=== PATIENT | male | born 1970 | race Caucasian/White ===

== ENCOUNTER 2016-10-03 08:54 | Day surgery (SDC) | payer OTHER ==
[~2016-10-03 08:54] MED LIST: DIPHENHYDRAMINE HCL 50 MG/ML VIAL ONE; EPINEPHRINE INJ 1 MG/10 ML DISP.SYRIN ONE; FENTANYL CITRATE INJ/PF 100 MCG/2 ML AMPUL ONE; FLUMAZENIL INJ 0.5 MG/5 ML VIAL IV ONE; GLUCAGON,HUMAN RECOMB 1 MG INJ ONE; MIDAZOLAM 2 MG/2 ML INJ ONE; NALOXONE HCL INJ/PF 0.4 MG/1 ML SDV ONE; ONDANSETRON HCL INJ/PF 4 MG/2 ML SDV ONE; PROMETHAZINE HCL INJ 25 MG/1 ML VIAL ONE
--- NOTE | 2016-10-03 10:18 | Operative Report ---
Operative Report DATE OF SURGERY: 10/03/16 Operative Report: The risks, benefits and alternatives of the procedure including risks of bleeding, perforation requiring surgery I explained to the patient detail informed consents obtained. Patient is taken back to the endoscopy suite. He is placed in the left lateral decubital position. Timeout is called. A rectal examination done which did not reveal any masses, tears or fissures. An Olympus videoscope was inserted into the patient's rectum. The scope was then gradually advanced all the way to the cecum. Seems identified by the usual anatomical landmarks of the ileocecal valve as well as the appendiceal office. Photodocumentation was obtained. The scope was then sequentially pulled back via the rest segments of the colon including the ascending colon, hepatic flexure, transverse colon, splenic flexure, descending colon and finally into the rectosigmoid colon. Retroflexion maneuvers performed. PREOPERATIVE DIAGNOSIS: Rectal bleeding, colorectal cancer screening. POSTOPERATIVE DIAGNOSIS: Internal hemorrhoids. Diverticulosis. Some peridiverticular inflammation status post biopsy OPERATION: Colonoscopy with biopsy SURGEON: ROXANNE CASH ANESTHESIA: Moderate Sedation - 2 mg Versed, 75 g of fentanyl. TISSUE REMOVED OR ALTERED: Colon specimens obtained rule out etiology for colitis COMPLICATIONS: None. ESTIMATED BLOOD LOSS: none. INTRAOPERATIVE FINDINGS: As described above. No polyps, AVMs noted. PROCEDURE: Patient tolerated procedure well. No immediate postprocedure complications are noted. Patient is discharged in good condition. Discharge date 10/03/2016. Discharge diet: Regular. Discharge activity: Regular. Surveillance colonoscopy in 10 years 2-3 week follow-up to discuss findings Patient is instructed to call the office or proceed to the emergency room if there are any further problems or questions. We'll await on biopsies.
[2016-10-03 11:14] VITALS: BP 122/71
== END 2016-10-03 11:15 | disposition home or self-care (01) ==
LOC: END 08:54
PROVIDERS: ATTEND Internal Medicine Gastroenterology
PROC: 0DBN8ZX Excision of Sigmoid Colon, Via Natural or Artificial Opening Endoscopic, Diagnostic (ICD-10-PCS; principal; 2016-10-03 09:30)
DX: K52.9 Noninfective gastroenteritis and colitis, unspecified (principal); K62.5 Hemorrhage of anus and rectum; K64.8 Other hemorrhoids; F17.210 Nicotine dependence, cigarettes, uncomplicated; K21.9 Gastro-esophageal reflux disease without esophagitis
CPT/HCPCS: 45380; 82962; 88305 ×2; J2250; J3010; J0171; J1200; J1610; J2310; J2405; J2550; J3490